=== PATIENT | male | born 1940 | race Caucasian/White ===

== ENCOUNTER 2020-11-27 02:13 | Outpatient (RCR) | payer MEDICARE, SELFPAY ==
[2020-11-10] MEDS: Normal Saline Flush 10 ML SYR IVP (12:05)
[2020-11-10] MEDS: Heparin 500 UNITS/5 ML SYRINGE IV (12:05)
[2020-11-10 12:27] LABS: Abs Immature Grans 0.02 10^3/uL (0.0-0.06); Absolute Basophil Count 0.01 10^3/uL (0.0-0.2); Absolute Eosinophil Count 0.08 10^3/uL (0.0-0.7); Absolute Lymphocyte Count 1.29 10^3/uL (1.2-3.4); Absolute Monocyte Count 0.81 10^3/uL (0.1-0.8); Absolute Neutrophil Count 3.02 10^3/uL (1.2-6.7); Basophils % 0.2; Eosinophils % 1.5; HCT 45.9 % (40.0-50.0); HGB 14.8 g/dL (13.5-17.5); Immature Grans % 0.4; Lymphocytes % 24.7; MCHC 32.2 % (32.0-36.0); MCV 96.2 fL (80-95); Monocytes % 15.5; Neutrophils % 57.7; Nucleated RBC 0 %; RBC 4.77 10^6/uL (4.36-5.78); RDW 15.5 % (11.8-14.1); RDW-SD 54.7 fL; WBC 5.23 10^3/uL (4.4-10.8)
[2020-11-10 12:33] LABS: ALT 41 U/L (16-63); AST 38 U/L (15-37); Albumin 3.2 g/dL (3.4-5.0); Alkaline Phosphatase 83 U/L (46-116); Anion Gap 5.8 mmol/L (3-11); BUN 14 mg/dL (7-18); Bilirubin, Total 0.6 mg/dL (0.2-1.0); CO2 30.2 mmol/L (21.0-32.0); CREATININE 1.14 mg/dL (0.70-1.30); Calcium 8.1 mg/dL (8.5-10.1); Chloride 103 mmol/L (98-107); Glucose 93 mg/dL (74-106); Potassium 3.8 mmol/L (3.5-5.1); Sodium 139 mmol/L (136-145); Total Protein 6.6 g/dL (6.4-8.2)
[2020-11-10 12:53] LABS: Diff Comment PLT Morph Reviewed; Platelet Count 131 10^3/uL (130-400); RBC Morphology Normal
[2020-11-10 17:35] LABS: CEA 2.2 ng/mL (See Note)
[2020-11-17] MEDS: Normal Saline Flush 10 ML SYR IVP (10:23)
[2020-11-17] MEDS: Heparin 500 UNITS/5 ML SYRINGE IV (10:23)
[2020-11-17 10:46] LABS: ALT 44 U/L (16-63); AST 40 U/L (15-37); Abs Immature Grans 0.04 10^3/uL (0.0-0.06); Absolute Basophil Count 0.02 10^3/uL (0.0-0.2); Absolute Eosinophil Count 0.06 10^3/uL (0.0-0.7); Absolute Lymphocyte Count 1.04 10^3/uL (1.2-3.4); Absolute Monocyte Count 0.62 10^3/uL (0.1-0.8); Absolute Neutrophil Count 3.08 10^3/uL (1.2-6.7); Alkaline Phosphatase 105 U/L (46-116); BUN 17 mg/dL (7-18); Basophils % 0.4; Bilirubin, Total 0.5 mg/dL (0.2-1.0); CREATININE 1.08 mg/dL (0.70-1.30); Calcium 7.9 mg/dL (8.5-10.1); Chloride 106 mmol/L (98-107); Eosinophils % 1.2; Glucose 90 mg/dL (74-106); HCT 45.2 % (40.0-50.0); HGB 14.5 g/dL (13.5-17.5); Immature Grans % 0.8; Lymphocytes % 21.4; MCHC 32.1 % (32.0-36.0); MCV 96.6 fL (80-95); Monocytes % 12.8; Neutrophils % 63.4; Nucleated RBC 0 %; Potassium 3.8 mmol/L (3.5-5.1); RBC 4.68 10^6/uL (4.36-5.78); RDW 15.1 % (11.8-14.1); RDW-SD 53.8 fL; Sodium 141 mmol/L (136-145); Total Protein 6.3 g/dL (6.4-8.2); WBC 4.86 10^3/uL (4.4-10.8)
[2020-11-17 10:58] LABS: Diff Comment PLT Morph Reviewed; Platelet Count 154 10^3/uL (130-400); RBC Morphology Normal
[2020-11-27] MEDS: Heparin 500 UNITS/5 ML SYRINGE IV (07:45)
[2020-11-27] MEDS: Normal Saline Flush 10 ML SYR IVP (07:45)
[2020-11-27 08:05] LABS: Abs Immature Grans 0.07 10^3/uL (0.0-0.06); Absolute Basophil Count 0.01 10^3/uL (0.0-0.2); Absolute Lymphocyte Count 0.87 10^3/uL (1.2-3.4); Absolute Monocyte Count 0.51 10^3/uL (0.1-0.8); Absolute Neutrophil Count 3.35 10^3/uL (1.2-6.7); Basophils % 0.2; HCT 41.5 % (40.0-50.0); HGB 13.8 g/dL (13.5-17.5); Immature Grans % 1.4; Lymphocytes % 17.7; MCH 31.7 pg (27.0-33.0); MCHC 33.3 % (32.0-36.0); MCV 95.4 fL (80-95); Monocytes % 10.4; Neutrophils % 68.3; Nucleated RBC 0 %; RBC 4.35 10^6/uL (4.36-5.78); RDW 14.7 % (11.8-14.1); WBC 4.91 10^3/uL (4.4-10.8)
[2020-11-27 08:08] LABS: ALT 46 U/L (16-63); AST 38 U/L (15-37); Alkaline Phosphatase 78 U/L (46-116); Anion Gap 4.3 mmol/L (3-11); BUN 11 mg/dL (7-18); Bilirubin, Total 0.5 mg/dL (0.2-1.0); CO2 30.7 mmol/L (21.0-32.0); CREATININE 1.04 mg/dL (0.70-1.30); Chloride 105 mmol/L (98-107); Glucose 106 mg/dL (74-106); Potassium 3.5 mmol/L (3.5-5.1); Sodium 140 mmol/L (136-145); Total Protein 6.2 g/dL (6.4-8.2)
[2020-11-27 08:40] LABS: Diff Comment PLT Morph Reviewed; RBC Morphology Normal
== END 2020-11-30 23:59 | disposition home or self-care (01) ==
LOC: INF 02:13
PROVIDERS: PCP Internal Medicine; Visit Provider Internal Medicine Hematology & Oncology
DX: C20 Malignant neoplasm of rectum (principal); Z45.2 Encounter for adjustment and management of vascular access device
CPT/HCPCS: 36591; 80053; 82378; 85025

== ENCOUNTER 2020-12-22 04:28 | Outpatient (RCR) | payer OTHER, SELFPAY ==
[2020-12-08] MEDS: Heparin 500 UNITS/5 ML SYRINGE IV (08:04)
[2020-12-08] MEDS: Normal Saline Flush 10 ML SYR IVP (08:04)
[2020-12-08 08:10] LABS: Abs Immature Grans 0.01 10^3/uL (0.0-0.06); Absolute Basophil Count 0.03 10^3/uL (0.0-0.2); Absolute Eosinophil Count 0.13 10^3/uL (0.0-0.7); Absolute Lymphocyte Count 0.53 10^3/uL (1.2-3.4); Absolute Monocyte Count 0.46 10^3/uL (0.1-0.8); Absolute Neutrophil Count 2.29 10^3/uL (1.2-6.7); Basophils % 0.9; Eosinophils % 3.8; HCT 40.3 % (40.0-50.0); HGB 13.3 g/dL (13.5-17.5); Immature Grans % 0.3; Lymphocytes % 15.4; MCV 96.9 fL (80-95); Monocytes % 13.3; Neutrophils % 66.3; Nucleated RBC 0 %; RBC 4.16 10^6/uL (4.36-5.78); RDW 15.5 % (11.8-14.1); WBC 3.45 10^3/uL (4.4-10.8)
[2020-12-08 08:22] LABS: ALT 40 U/L (16-63); AST 39 U/L (15-37); Albumin 3.2 g/dL (3.4-5.0); Alkaline Phosphatase 87 U/L (46-116); Anion Gap 6.3 mmol/L (3-11); BUN 18 mg/dL (7-18); Bilirubin, Total 0.6 mg/dL (0.2-1.0); CO2 28.7 mmol/L (21.0-32.0); CREATININE 1.17 mg/dL (0.70-1.30); Calcium 7.8 mg/dL (8.5-10.1); Chloride 104 mmol/L (98-107); Glucose 110 mg/dL (74-106); Potassium 3.7 mmol/L (3.5-5.1); Sodium 139 mmol/L (136-145); Total Protein 6.2 g/dL (6.4-8.2)
[2020-12-08 08:29] LABS: Diff Comment PLT Morph Reviewed; RBC Morphology Normal
[2020-12-15] MEDS: Heparin 500 UNITS/5 ML SYRINGE IV (08:54)
[2020-12-15] MEDS: Normal Saline Flush 10 ML SYR IVP (08:54)
[2020-12-15 09:07] LABS: Abs Immature Grans 0.02 10^3/uL (0.0-0.06); Absolute Basophil Count 0.02 10^3/uL (0.0-0.2); Absolute Eosinophil Count 0.26 10^3/uL (0.0-0.7); Absolute Lymphocyte Count 0.31 10^3/uL (1.2-3.4); Absolute Monocyte Count 0.46 10^3/uL (0.1-0.8); Absolute Neutrophil Count 2.85 10^3/uL (1.2-6.7); Basophils % 0.5; Eosinophils % 6.6; HCT 39.8 % (40.0-50.0); HGB 13.1 g/dL (13.5-17.5); Immature Grans % 0.5; Lymphocytes % 7.9; MCH 31.8 pg (27.0-33.0); MCHC 32.9 % (32.0-36.0); MCV 96.6 fL (80-95); Monocytes % 11.7; Neutrophils % 72.8; Nucleated RBC 0 %; RBC 4.12 10^6/uL (4.36-5.78); RDW 16.4 % (11.8-14.1); RDW-SD 54.5 fL; WBC 3.92 10^3/uL (4.4-10.8)
[2020-12-15 09:20] LABS: Diff Comment PLT Morph Reviewed; RBC Morphology Normal
[2020-12-15 09:28] LABS: ALT 33 U/L (16-63); AST 33 U/L (15-37); Albumin 3.1 g/dL (3.4-5.0); Alkaline Phosphatase 73 U/L (46-116); Anion Gap 5.1 mmol/L (3-11); BUN 16 mg/dL (7-18); Bilirubin, Total 0.6 mg/dL (0.2-1.0); CO2 29.9 mmol/L (21.0-32.0); CREATININE 1.07 mg/dL (0.70-1.30); Chloride 104 mmol/L (98-107); Glucose 138 mg/dL (74-106); Potassium 3.3 mmol/L (3.5-5.1); Sodium 139 mmol/L (136-145); Total Protein 6.3 g/dL (6.4-8.2)
[2020-12-15 19:27] LABS: CEA 1.7 ng/mL (See Note)
[2020-12-22] MEDS: Heparin 500 UNITS/5 ML SYRINGE IV (08:30)
[2020-12-22] MEDS: Normal Saline Flush 10 ML SYR IVP (08:30)
[2020-12-22 08:50] LABS: Abs Immature Grans 0.02 10^3/uL (0.0-0.06); Absolute Basophil Count 0.02 10^3/uL (0.0-0.2); Absolute Lymphocyte Count 0.34 10^3/uL (1.2-3.4); Absolute Monocyte Count 0.44 10^3/uL (0.1-0.8); Absolute Neutrophil Count 2.65 10^3/uL (1.2-6.7); Basophils % 0.5; Eosinophils % 5.4; HCT 39.5 % (40.0-50.0); Immature Grans % 0.5; Lymphocytes % 9.3; MCH 32.1 pg (27.0-33.0); MCHC 32.9 % (32.0-36.0); MCV 97.5 fL (80-95); Neutrophils % 72.3; Nucleated RBC 0 %; RBC 4.05 10^6/uL (4.36-5.78); RDW 17.6 % (11.8-14.1); RDW-SD 61.1 fL; WBC 3.67 10^3/uL (4.4-10.8)
[2020-12-22 09:11] LABS: ALT 34 U/L (16-63); AST 32 U/L (15-37); Albumin 3.1 g/dL (3.4-5.0); Alkaline Phosphatase 78 U/L (46-116); Anion Gap 7.9 mmol/L (3-11); BUN 11 mg/dL (7-18); Bilirubin, Total 0.6 mg/dL (0.2-1.0); CO2 28.1 mmol/L (21.0-32.0); CREATININE 1.14 mg/dL (0.70-1.30); Calcium 8.1 mg/dL (8.5-10.1); Chloride 104 mmol/L (98-107); Glucose 128 mg/dL (74-106); Potassium 3.4 mmol/L (3.5-5.1); Sodium 140 mmol/L (136-145); Total Protein 6.1 g/dL (6.4-8.2)
[2020-12-22 09:14] LABS: Anisocytosis 1+; Diff Comment PLT Morph Reviewed; Polychromasia Present
[2020-12-22 19:14] LABS: CEA 1.8 ng/mL (See Note)
== END 2020-12-31 23:59 | disposition home or self-care (01) ==
LOC: INF 04:28
PROVIDERS: PCP Internal Medicine; Visit Provider Internal Medicine Hematology & Oncology
DX: C20 Malignant neoplasm of rectum (principal); Z45.2 Encounter for adjustment and management of vascular access device
CPT/HCPCS: 36591; 80053; 82378; 85025

== ENCOUNTER 2021-06-08 09:22 | Outpatient (RCR) | payer OTHER, SELFPAY ==
[2021-06-08 13:25] LABS: Abs Immature Grans 0.02 10^3/uL (0.0-0.06); HCT 44.6 % (40.0-50.0); HGB 14.7 g/dL (13.5-17.5); Nucleated RBC 0 %; RDW 13.8 % (11.8-14.1); RDW-SD 49.1 fL; WBC 4.84 10^3/uL (4.4-10.8)
[2021-06-08 13:34] LABS: ALT 31 U/L (16-63); AST 20 U/L (15-37); Albumin 3.2 g/dL (3.4-5.0); Alkaline Phosphatase 80 U/L (46-116); Anion Gap 8.5 mmol/L (3-11); BUN 17 mg/dL (7-18); Bilirubin, Total 0.6 mg/dL (0.2-1.0); CO2 28.5 mmol/L (21.0-32.0); CREATININE 1.1 mg/dL (0.70-1.30); Calcium 8.5 mg/dL (8.5-10.1); Chloride 106 mmol/L (98-107); Glucose 116 mg/dL (74-106); Sodium 143 mmol/L (136-145); Total Protein 6.5 g/dL (6.4-8.2)
[2021-06-08] MEDS: Heparin 500 UNITS/5 ML SYRINGE IVP (13:36)
[2021-06-08] MEDS: Normal Saline Flush 10 ML SYR IVP (13:36)
[2021-06-08 14:01] LABS: Absolute Lymphocyte Count 0.87 10^3/uL (1.2-3.4); Absolute Monocyte Count 0.53 10^3/uL (0.1-0.8); Absolute Neutrophil Count 3.34 10^3/uL (1.2-6.7); Atypical Lymphocytes % 3; Diff Comment Manual Differential; RBC Morphology Normal
[2021-06-08 22:36] LABS: CEA <2.0 ng/mL (See Note)
== END 2021-06-30 23:59 | disposition home or self-care (01) ==
LOC: INF 09:22
PROVIDERS: PCP Internal Medicine; Visit Provider Internal Medicine Hematology & Oncology
DX: C20 Malignant neoplasm of rectum (principal); Z45.2 Encounter for adjustment and management of vascular access device
CPT/HCPCS: 36591; 80053; 82378; 85025

== ENCOUNTER 2021-09-07 08:47 | Outpatient (RCR) | payer MEDICARE, SELFPAY ==
[2021-09-07] MEDS: Normal Saline Flush 10 ML SYR IVP (09:00)
[2021-09-07] MEDS: Heparin 500 UNITS/5 ML SYRINGE IVP (09:01)
[2021-09-07 09:18] LABS: Abs Immature Grans 0.03 10^3/uL (0.0-0.06); Absolute Basophil Count 0.03 10^3/uL (0.0-0.2); Absolute Eosinophil Count 0.19 10^3/uL (0.0-0.7); Absolute Monocyte Count 0.46 10^3/uL (0.1-0.8); Absolute Neutrophil Count 3.07 10^3/uL (1.2-6.7); Basophils % 0.7; Eosinophils % 4.3; HCT 44.2 % (40.0-50.0); HGB 14.4 g/dL (13.5-17.5); Immature Grans % 0.7; Lymphocytes % 13.7; MCH 31.6 pg (27.0-33.0); MCHC 32.6 % (32.0-36.0); MCV 97.1 fL (80-95); MPV 12.5 fL (8.0-11.0); Monocytes % 10.5; Neutrophils % 70.1; Nucleated RBC 0 %; Platelet Count 133 10^3/uL (130-400); RBC 4.55 10^6/uL (4.36-5.78); RDW 13.8 % (11.8-14.1); WBC 4.38 10^3/uL (4.4-10.8)
[2021-09-07 09:28] LABS: ALT 22 U/L (16-63); AST 19 U/L (15-37); Albumin 3.2 g/dL (3.4-5.0); Alkaline Phosphatase 74 U/L (46-116); Anion Gap 4.8 mmol/L (3-11); BUN 13 mg/dL (7-18); Bilirubin, Total 0.4 mg/dL (0.2-1.0); CO2 31.2 mmol/L (21.0-32.0); CREATININE 1.2 mg/dL (0.70-1.30); Chloride 107 mmol/L (98-107); Estimated GFR 58.56 (mL/min/1.73m2); Glucose 134 mg/dL (74-106); Sodium 143 mmol/L (136-145); Total Protein 6.5 g/dL (6.4-8.2)
[2021-09-07 17:52] LABS: CEA <2.0 ng/mL (See Note)
== END 2021-09-30 23:59 | disposition home or self-care (01) ==
LOC: INF 08:47
PROVIDERS: PCP Internal Medicine; Visit Provider Internal Medicine Hematology & Oncology
DX: C20 Malignant neoplasm of rectum (principal); Z45.2 Encounter for adjustment and management of vascular access device
CPT/HCPCS: 36591; 80053; 82378; 85025

== ENCOUNTER 2021-11-07 13:30 | Outpatient (RCR) | payer MEDICARE, SELFPAY ==
[2021-11-05 10:01] LABS: Abs Immature Grans 0.03 10^3/uL (0.0-0.06); Absolute Basophil Count 0.03 10^3/uL (0.0-0.2); Absolute Eosinophil Count 0.13 10^3/uL (0.0-0.7); Absolute Lymphocyte Count 0.73 10^3/uL (1.2-3.4); Absolute Monocyte Count 0.56 10^3/uL (0.1-0.8); Absolute Neutrophil Count 3.94 10^3/uL (1.2-6.7); Basophils % 0.6; Eosinophils % 2.4; HGB 14.6 g/dL (13.5-17.5); Immature Grans % 0.6; Lymphocytes % 13.5; MCH 31.5 pg (27.0-33.0); MCHC 32.4 % (32.0-36.0); MCV 97.2 fL (80-95); MPV 13.2 fL (8.0-11.0); Monocytes % 10.3; Neutrophils % 72.6; Nucleated RBC 0 %; Platelet Count 146 10^3/uL (130-400); RBC 4.63 10^6/uL (4.36-5.78); RDW 13.8 % (11.8-14.1); RDW-SD 49.3 fL; WBC 5.42 10^3/uL (4.4-10.8)
[2021-11-05 10:16] LABS: ALT 25 U/L (16-63); AST 23 U/L (15-37); Albumin 3.2 g/dL (3.4-5.0); Alkaline Phosphatase 72 U/L (46-116); Anion Gap 6.5 mmol/L (3-11); BUN 14 mg/dL (7-18); Bilirubin, Total 0.6 mg/dL (0.2-1.0); CO2 30.5 mmol/L (21.0-32.0); CREATININE 1.1 mg/dL (0.70-1.30); Calcium 8.3 mg/dL (8.5-10.1); Chloride 105 mmol/L (98-107); Glucose 107 mg/dL (74-106); Potassium 3.6 mmol/L (3.5-5.1); Sodium 142 mmol/L (136-145); Total Protein 6.5 g/dL (6.4-8.2)
[2021-11-05] MEDS: Normal Saline Flush 10 ML SYR IVP (10:37)
[2021-11-07] MEDS: Normal Saline Flush 10 ML SYR IVP (13:27)
[2021-11-07] MEDS: Heparin 500 UNITS/5 ML SYRINGE IV (13:28)
[2021-11-07 23:34] LABS: CEA 1.7 ng/mL (See Note)
== END 2021-11-30 23:59 | disposition home or self-care (01) ==
LOC: INF 13:30
PROVIDERS: PCP Internal Medicine; Visit Provider Internal Medicine Hematology & Oncology
DX: C20 Malignant neoplasm of rectum (principal); Z45.2 Encounter for adjustment and management of vascular access device
CPT/HCPCS: 36591; 80053; 82378; 85025

== ENCOUNTER 2023-06-12 16:44 | Outpatient (REF) | payer MEDICARE, SELFPAY ==
[2023-06-12 19:25] LABS: Bilirubin Negative (Negative); Blood Large (Negative); Clarity Cloudy (Clear); Glucose Negative (Negative); Ketones Negative (Negative); Leukocyte Esterase Moderate (Negative); Nitrite Negative (Negative); Specific Gravity 1.015 (1.005-1.025); Urobilinogen 0.2 mg/dL (Up to 0.2)
[2023-06-12 19:38] LABS: Bacteria Many HPF (Negative); Casts Negative LPF (Negative); Crystals Negative HPF (Negative); Epithelial Cells Rare HPF (Negative); Mucus Trace (Negative); RBC >50 HPF (0-2); WBC 20-50 HPF (0-5)
[2023-06-12 19:39] LABS: C & S Indicated? C&S Done As Ordered
== END 2023-06-12 16:45 | disposition home or self-care (01) ==
LOC: LBN 16:44
PROVIDERS: PCP Internal Medicine; Visit Provider Nurse Practitioner
DX: N39.0 Urinary tract infection, site not specified (principal); R82.998 Other abnormal findings in urine
CPT/HCPCS: 81003; 81015; 87086

== ENCOUNTER 2023-08-07 17:12 | Outpatient (REF) | payer MEDICARE, SELFPAY ==
[2023-08-07 17:53] LABS: Bilirubin Negative (Negative); Blood Large (Negative); Clarity Cloudy (Clear); Glucose Negative (Negative); Ketones Negative (Negative); Leukocyte Esterase Small (Negative); Nitrite Negative (Negative); Specific Gravity 1.015 (1.005-1.025); Urobilinogen 0.2 mg/dL (Up to 0.2)
[2023-08-07 18:08] LABS: Bacteria Many HPF (Negative); C & S Indicated? C&S Done As Ordered; Casts Negative LPF (Negative); Crystals Negative HPF (Negative); Epithelial Cells Rare HPF (Negative); Mucus Negative (Negative); RBC 20-50 HPF (0-2); WBC 20-50 HPF (0-5)
== END 2023-08-07 17:13 | disposition home or self-care (01) ==
LOC: LBN 17:12
PROVIDERS: PCP Internal Medicine; Visit Provider Internal Medicine
DX: R31.9 Hematuria, unspecified (principal); R35.0 Frequency of micturition; R82.79 Other abnormal findings on microbiological examination of urine
CPT/HCPCS: 87077; 81003; 81015; 87086; 87186